=== PATIENT | male | born 1995 | race Caucasian/White ===

== ENCOUNTER → 2020-08-08 00:29 | Outpatient (CLI) | payer OTHER, SELFPAY ==
[2020-08-08 17:45] LABS: SARS-CoV-2 RNA PCR Negative
== END ==
PROVIDERS: PCP Family Medicine; Visit Provider Internal Medicine Gastroenterology
DX: Z01.812 Encounter for preprocedural laboratory examination (principal); Z20.822 Contact with and (suspected) exposure to COVID-19
CPT/HCPCS: C9803; U0003; U0005

== ENCOUNTER 2020-08-11 01:16 | Day surgery (SDC) | payer OTHER, SELFPAY ==
[2020-07-28 13:05] VITALS: BMI 22.8
[2020-08-11 12:59] VITALS: BP 121/79; PULSE 63; RESP 16; TEMP 37.1; O2SAT 99; BMI 23.8
[2020-08-11] MEDS: LACTATED RINGERS 1,000 ML 150 ML IV CONT (13:05)
--- NOTE | 2020-08-11 13:33 | WPDANESEPPF ---
Anes - Initial Pre Proc Eval Procedure: Operation Date: 08/11/20 13:45 Proposed Procedures p Esophagogastroduodenoscopy - Julian Quintana MD Date/Time: 08/11/20 13:33 Surgeon: Julian Quintana MD Pre Op Diagnosis: Paul's Esophagus Patient Data Age: 24 Gender: M Height: 5 ft 7 in Weight: 69 kg Last Vital Signs Temp 98.7 F 08/11/20 12:59 Pulse 63 08/11/20 12:59 Resp 16 08/11/20 12:59 BP 121/79 08/11/20 12:59 Pulse Ox 99 08/11/20 12:59 Allergies Allergy/AdvReac Type Severity Reaction Status Date / Time amoxicillin Allergy Unknown Skin Verified 08/11/20 12:58 Reaction cephalexin Allergy Unknown Unknown Verified 08/11/20 12:58 erythromycin base Allergy Unknown Nausea Verified 08/11/20 12:58 AMOXICILLIN TRIHYDRATE Allergy Mild Unknown Uncoded 07/28/20 12:59 POTASSIUM CLAVULANATE Allergy Mild Unknown Uncoded 07/28/20 12:59 Home Medications Medication Instructions Recorded Confirmed Type omeprazole 40 mg capsule,delayed 40 mg PO DAILY #30 cap 06/11/20 07/28/20 Rx release Patient hx anesthesia problems: none Family hx anesthesia problems: none PMFSH Past Medical History Medical History (Updated 06/11/20 @ 15:27 by Julian Quintana MD) Barretts esophagus GERD (gastroesophageal reflux disease) Hemorrhoids that prolapse with straining, but retract spontaneously Surgical History Surgical History H/O splenectomy Family History Family History Grandparent Family history of pancreatic cancer Family history of lung cancer Family history of primary malignant neoplasm of liver Family history of malignant neoplasm of brain Other No problems noted. 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 Questions were solicited and answers provided to the satisfaction of the patient/family/POA.
--- NOTE | 2020-08-11 14:06 | PM.HPGS ---
History of Present Illness History of Present Illness Consent: Risks, benefits, and alternatives have been discussed and questions answered. Patient agrees to proceed with procedure. Chief complaint: Angela's Esophagus Narrative: Vitaliy Guerrero is a 24 year old male with angela's, controlled with omeprazole Review of Systems Constitutional: Constitutional: Denies headache(s) and Denies weakness Eyes: Eyes: Denies blurry vision ENT: Reports Normal hearing present, Denies headache(s) and Denies neck pain Cardiovascular: Cardiovascular: Denies chest pain and Denies dyspnea Respiratory: Respiratory: Denies dyspnea Gastrointestinal: Gastrointestinal: Reports no additional gastrointestinal complaints Genitourinary: Genitourinary: Denies dysuria Musculoskeletal: Musculoskeletal: Denies neck pain Integumentary/Breasts: Skin/Breast: Denies dry skin Neurologic: Reports Normal hearing present, Denies headache(s) and Denies weakness Psychiatric: Psychiatric: Denies anxiety Endocrine: Endocrine: Denies change in body appearance Hematologic/Lymphatic: Hematologic/Lymphatic: Denies easy bleeding Allergic/Immunologic: Allergic/Immunologic: Denies urticaria PMFSH Past Medical History Medical History (Updated 08/11/20 @ 14:07 by Julian Quintana MD) Barretts esophagus GERD (gastroesophageal reflux disease) Hemorrhoids that prolapse with straining, but retract spontaneously Surgical History Surgical History H/O splenectomy Family History Family History Grandparent Family history of pancreatic cancer Family history of lung cancer Family history of primary malignant neoplasm of liver Family history of malignant neoplasm of brain Other No problems noted. 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 Gender identity (if verbalized by the patient): Male Spiritual care concerns: No Meds Home Medications and Allergies Home Medications Medication Instructions Recorded Confirmed Type omeprazole 40 mg capsule,delayed 40 mg PO DAILY #30 cap 06/11/20 07/28/20 Rx release Allergies Allergy/AdvReac Type Severity Reaction Status Date / Time amoxicillin Allergy Unknown Skin Verified 08/11/20 12:58 Reaction cephalexin Allergy Unknown Unknown Verified 08/11/20 12:58 erythromycin base Allergy Unknown Nausea Verified 08/11/20 12:58 AMOXICILLIN TRIHYDRATE Allergy Mild Unknown Uncoded 07/28/20 12:59 POTASSIUM CLAVULANATE Allergy Mild Unknown Uncoded 07/28/20 12:59 Vital Signs Vital Signs - 24 hr 08/11/20 12:59 Temperature 98.7 F Pulse Rate 63 Respiratory Rate 16 Blood Pressure 121/79 Pulse Oximetry 99 Exam Const: General: comfortable and no acute distress HENMT: General nose exam: Normal nares present Eyes: General: appearance normal, both eyes and all related structures Neck: Neck: no JVD Resp: Auscultation: clear to auscultation bilaterally Cardio: Rate: regular rate Rhythm: regular rhythm GI: Inspection: non-distended GI Palp: Yes Soft to palpation Skin: General skin exam: normal color Neuro: General: gait normal Speech: normal speech Extrem: General: normal to inspection Psych: Mental Status: mental status grossly normal Assessment and Plan Assessment and plan (1) Barretts esophagus: Code(s): K22.70 - Angela's esophagus without dysplasia Status: Acute Assessment and Plan: egd with bx (2) GERD (gastroesophageal reflux disease): Code(s): K21.9 - Gastro-esophageal reflux disease without esophagitis
[2020-08-11 14:25] VITALS: BP 109/71; PULSE 90; RESP 16; O2SAT 92
[2020-08-11 14:35] VITALS: BP 105/65; PULSE 86; RESP 16; O2SAT 96
[2020-08-11 14:45] VITALS: BP 106/63; PULSE 80; RESP 16; O2SAT 97
== END 2020-08-11 15:00 | disposition home or self-care (01) ==
PROVIDERS: PCP Family Medicine; Visit Provider Internal Medicine Gastroenterology
PROC: 0DJ08ZZ Inspection of Upper Intestinal Tract, Via Natural or Artificial Opening Endoscopic (ICD-10-PCS; CPT 43235; principal; 2020-08-11 13:45)
DX: K22.70 Barrett's esophagus without dysplasia (principal); K44.9 Diaphragmatic hernia without obstruction or gangrene; K29.50 Unspecified chronic gastritis without bleeding; K21.00 Gastro-esophageal reflux disease with esophagitis, without bleeding
CPT/HCPCS: 43239; 36415; 80053; 83690; 85025; 88305; 99199; C9803; J2704; J7120; U0003; U0005

== ENCOUNTER 2020-08-11 19:30 | Emergency (ER) | payer OTHER, SELFPAY ==
[2020-08-11 19:57] VITALS: BP 119/64; PULSE 112; RESP 16; TEMP 37.1; O2SAT 94
[2020-08-11 20:12] LABS: Basophils Absolute Auto 0.1 K/mm3 (0.0-0.1); Basophils Percent Auto 0.4 % (0.2-1.2); Eosinophils Percent Auto 0.1 % (0-4.4); Hematocrit 43.1 % (42.0-52.0); Hemoglobin 14.3 g/dL (14.0-18.0); Immature Granulocyte Absolute 0.09 K/mm3 (0.00-0.031); Immature Granulocyte Percent A 0.5 % (0-0.5); Lymphocytes Absolute Auto 1.27 K/mm3 (0.9-3.2); Lymphocytes Percent Auto 6.5 % (18.3-44.2); Mean Corpuscular HGB Conc 33.2 g/dl (32-36); Mean Corpuscular Hemoglobin 30.1 pg (26-34); Mean Corpuscular Volume 90.7 fl (80-100); Mean Platelet Volume 9.4 fl (7.4-10.4); Monocytes Absolute Auto 1.4 K/mm3 (0.1-0.6); Monocytes Percent Auto 7.2 % (2.6-8.5); Neutrophils Absolute Auto 16.7 K/mm3 (1.3-6.7); Neutrophils Percent Auto 85.3 % (45.5-73.1); Platelet Count Result 363 k/mm3 (150-375); Red Blood Count 4.75 M/mm3 (4.6-6.20); Red Cell Distribution Width 14.1 % (11.5-14.5); White Blood Count 19.6 K/mm3 (4.5-10.0)
[2020-08-11 20:26] LABS: Alanine Aminotransferase 27 U/L (4-50); Albumin Level 4.7 g/dL (3.5-5.1); Alkaline Phosphatase 80 U/L (38-126); Anion Gap 7 mmol/L (8-16); Aspartate Amino Transferase 33 U/L (17-59); Bilirubin,Total 1.1 mg/dL (0.2-1.3); Blood Urea Nitrogen 11 mg/dL (9-20); Calcium 9.1 mg/dL (8.4-10.2); Carbon Dioxide 29 mmol/L (22-30); Chloride 105 mmol/L (98-107); Estimated CRCL calculation 115 ml/min; Estimated Glomerular Filt Rate > 60; Glucose 104 mg/dL (75-110); Lipase 65 U/L (23-300); Sodium 141 mmol/L (137-145)
[2020-08-11 20:30] LABS: Potassium 3.7 mmol/L (3.4-5.0)
--- NOTE | 2020-08-11 21:17 | PC.NURSE ---
aptient going home-reports that he feels some better encouraged to come back if worse
== END 2020-08-11 21:17 | disposition left against medical advice (07) ==
LOC: ANHED 21:25
PROVIDERS: Emergency Provider Emergency Medicine; PCP Family Medicine
DX: R50.9 Fever, unspecified (principal)
CPT/HCPCS: 36415; 80053; 83690; 85025; 99199

== ENCOUNTER 2023-01-26 11:48 | Outpatient (CLI) | payer OTHER, SELFPAY ==
--- NOTE | ~2023-01-26 | US_ITS ---
EXAMINATION: US scrotum doppler DATE: 01/26/2023 12:18 INDICATION: Right testicular pain and palpable abnormality TECHNIQUE: Testicular sonogram utilizing grayscale and Doppler COMPARISON: None. FINDINGS: The right testis measures 4.4 x 2.6 x 3.2 cm. The left testis measures 4.2 x 2.2 x 2.9 cm. There is normal vascular flow to both testes. The right epididymis contains a 5 mm cyst or spermatoce le corresponding to the palpable area of concern.. The left epididymis is normal with normal vascular flow. There is no varicocele or hydrocele. IMPRESSION: 1. 5 mm cyst or spermatocele of the right epididymis corresponding to the palpable abnormality of con cern. Reviewed, dictated and finalized at location F. IMPRESSION: 1. 5 mm cyst or spermatocele of the right epididymis corresponding to the palpa ble abnormality of concern.
== END 2023-01-26 11:49 ==
LOC: MICIMG 11:49
PROVIDERS: PCP Family Medicine; Visit Provider Physician Assistant
DX: N50.811 Right testicular pain (principal)
CPT/HCPCS: 76870; 93976

== ENCOUNTER 2023-06-24 18:07 | Emergency (ER) | payer OTHER, SELFPAY ==
--- NOTE | 2023-06-24 18:10 | ED.URI ---
HPI - URI/Sore Throat General Chief Complaint: Upper Respiratory Infection Stated Complaint: Sinus Infection;Ear pain Time Seen by Provider: 06/24/23 18:10 Source: patient Mode of arrival: ambulatory Limitations: no limitations History of Present Illness HPI Narrative: Patient is a 27-year-old male who presents with sinus congestion, sinus pressure and ear pain for 2 weeks. Reports symptoms improved for 1 day and then returned and worsened. Patient has been taking Mucinex with no relief. Denies any fever, chills, nausea or diarrhea. Patient had 1 episode of emesis Tuesday night. Related Data Allergies Allergy/AdvReac Type Severity Reaction Status Date / Time magnesium Allergy Severe Other Verified 06/24/23 18:17 amoxicillin Allergy Intermediate Hives Verified 06/24/23 18:17 cephalexin Allergy Unknown Unknown Verified 04/18/23 09:03 erythromycin base Allergy Unknown Nausea Verified 04/18/23 09:03 AMOXICILLIN TRIHYDRATE Allergy Mild Unknown Uncoded 04/18/23 09:03 POTASSIUM CLAVULANATE Allergy Mild Unknown Uncoded 04/18/23 09:03 Review of Systems Review of Systems: All systems reviewed & are unremarkable except as noted in HPI and below Constitutional: Constitutional: Denies body ache(s), Denies chills, Denies fatigue, Denies fever(s), Denies headache(s), Denies malaise and Denies weakness Eyes: Eyes: Denies blurry vision, Denies itchy eyes and Denies loss of vision ENT: Reports otalgia, Denies headache(s), Reports nasal congestion, Denies sinus pain, Reports sinus pressure and Denies sore throat Cardiovascular: Cardiovascular: Denies chest pain, Denies irregular heart rhythm and Denies dyspnea Respiratory: Respiratory: Denies cough and Denies dyspnea Gastrointestinal: Gastrointestinal: Denies abdominal pain, Denies diarrhea, Denies nausea and Denies vomiting Musculoskeletal: Musculoskeletal: Denies back pain, Denies myalgias and Denies arthralgias Integumentary/Breasts: Skin/Breast: Denies pruritus and Denies rash Neurologic: Denies headache(s), Denies loss of vision and Denies weakness Psychiatric: Psychiatric: Reports no additional psychiatric complaints Endocrine: Endocrine: Denies fatigue Allergic/Immunologic: Allergic/Immunologic: Denies itchy eyes PMFSH Past Medical History Medical History Barretts esophagus GERD (gastroesophageal reflux disease) Hemorrhoids that prolapse with straining, but retract spontaneously Surgical History Surgical History H/O splenectomy Family History Family History Grandparent Family history of pancreatic cancer Family history of lung cancer Family history of primary malignant neoplasm of liver Family history of malignant neoplasm of brain Other No problems noted. 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 There is no relevant family history pertinent to the presenting complaint. Exam Const: General: cooperative, healthy appearin
[2023-06-24 18:29] VITALS: BP 118/85; PULSE 71; RESP 16; TEMP 36.6; O2SAT 97
== END 2023-06-24 18:39 | disposition home or self-care (01) ==
PROVIDERS: Emergency Provider Nurse Practitioner Family; PCP Family Medicine
DX: J01.40 Acute pansinusitis, unspecified (principal); F12.90 Cannabis use, unspecified, uncomplicated; K22.70 Barrett's esophagus without dysplasia; K21.9 Gastro-esophageal reflux disease without esophagitis
CPT/HCPCS: 99213; G0463

== ENCOUNTER 2024-03-22 10:42 | Outpatient (CLI) | payer OTHER, SELFPAY ==
--- NOTE | ~2024-03-22 | XR_ITS ---
Clinical Indication: Chest pain PA and lateral views of the chest: Comparison: None Findings: The lungs are clear, without evidence of focal consolidation or pleural effusion. Cardiome diastinal silhouette is within normal limits. Bones and soft tissues are unremarkable. Impression: Normal chest. Reviewed, dictated and finalized at location . 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
== END 2024-03-22 10:43 | disposition home or self-care (01) ==
LOC: GOSHIMG 10:43
PROVIDERS: PCP Family Medicine; Visit Provider Student in an Organized Health Care Education/Training Program
DX: R07.9 Chest pain, unspecified (principal); R50.9 Fever, unspecified; R06.02 Shortness of breath
CPT/HCPCS: 71046

== ENCOUNTER 2024-08-13 15:01 | Outpatient (CLI) | payer OTHER, SELFPAY ==
--- NOTE | ~2024-08-13 | XR_ITS ---
EXAMINATION: XR foot RT 2V, XR foot LT 2V DATE: 08/13/2024 15:45 INDICATION: Spondylosis, other specified arthritis TECHNIQUE: 1. Dorsoplantar and lateral views of the left foot were obtained. 2. Dorsoplantar and lateral views of the right foot were obtained. COMPARISON: None. FINDINGS: Alignment is normal at both feet. No fractures. Joint spaces are normal throughout with no erosions t o suggest inflammatory arthritis. Soft tissues are unremarkable. No ankle joint effusions. IMPRESSION: 1. Normal bilateral foot radiographs. Reviewed, dictated and finalized at location B. IMPRESSION: 1. Normal bilateral foot radiographs.
--- NOTE | ~2024-08-13 | XR_ITS ---
EXAMINATION: XR lumbar spine min 4V, XR sacroiliac joints min 3V DATE: 08/13/2024 15:45 INDICATION: Spondylosis, other specified arthritis TECHNIQUE: 1. Anteroposterior, lateral, and bilateral oblique views of the lumbar spine, and cone-down lateral v iew of the lumbosacral junction were obtained. 2. AP and left and right oblique views of the bilateral sacroiliac joints were obtained. COMPARISON: None. FINDINGS: Lumbar spine: 5 degrees lumbar levocurvature. Sagittal alignment is normal. Vertebral body and disc heights are nor mal. No pars interarticularis defects. Mild osteoarthritis at a few of the lower lumbar facet joints. Sacral iliac joints: Sacral arches are intact. No fractures. Minimal bilateral sacroiliac osteoarthritis. No erosions or s ubarticular sclerosis to suggest inflammatory sacroiliitis. Bilateral hip joint spaces are normal. IMPRESSION: 1. Mild osteoarthritis at the bilateral sacroiliac joints and lower lumbar facet joints. No erosions to suggest an inflammatory sacroiliitis. Reviewed, dictated and finalized at location B. IMPRESSION: 1. Mild osteoarthritis at the bilateral sacroiliac joints and lower lumbar face t joints. No erosions to suggest an inflammatory sacroiliitis.
--- NOTE | ~2024-08-13 | XR_ITS ---
EXAMINATION: XR hand LT 2V, XR hand RT 2V DATE: 08/13/2024 15:45 INDICATION: Spondylosis. Other specified arthritis. TECHNIQUE: 1. Posteroanterior and lateral views of the left hand were obtained. 2. Posteroanterior and lateral views of the right hand were obtained. COMPARISON: None. FINDINGS: Normal alignment at both hands. No fractures. Joint spaces are normal throughout. No erosions to sugg est an inflammatory arthritis. Soft tissues are unremarkable at both hands. IMPRESSION: 1. Normal bilateral hand radiographs. Reviewed, dictated and finalized at location B. IMPRESSION: 1. Normal bilateral hand radiographs.
== END 2024-08-13 15:02 | disposition home or self-care (01) ==
LOC: MICIMG 15:03
PROVIDERS: PCP Family Medicine; Visit Provider Internal Medicine
DX: M13.80 Other specified arthritis, unspecified site (principal); M47.9 Spondylosis, unspecified; R21 Rash and other nonspecific skin eruption; M53.3 Sacrococcygeal disorders, not elsewhere classified; M51.369 Other intervertebral disc degeneration, lumbar region without mention of lumbar back pain or lower extremity pain
CPT/HCPCS: 72110; 72202; 73120; 73620

== ENCOUNTER 2024-10-15 14:52 | Outpatient (CLI) | payer OTHER, SELFPAY ==
--- NOTE | ~2024-10-15 | MR_ITS ---
EXAMINATION: MR pelvis wo con DATE: 10/15/2024 15:45 INDICATION: Ankylosing spondylitis TECHNIQUE: Magnetic resonance imaging (MRI) of the sacrum and coccyx was performed without intravenou s contrast. Sequences included sagittal PD-weighted FS FSE, coronal oblique T2-weighted FS FSE, rosie nal oblique T1-weighted FSE, coronal oblique T2-weighted FSE, oblique axial T2-weighted FS FSE and ob lique axial T1-weighted FSE. COMPARISON: Radiograph dated 08/13/2024 FINDINGS: Normal bone marrow signal throughout with no fracture or pathologic marrow replacing process. Mild os teoarthritis at the lateral segment joints with mild nonuniform joint space narrowing. No increased s ignal along the joint lines to suggest joint effusion or synovitis. No associated erosions or subarti cular signal changes to suggest an inflammatory sacroiliitis. The visualized L4-L5 and L5-S1 discs ar e normal. Bladder, prostate, seminal vesicles and visualized portions of bowels and pelvis are unrema rkable. No free fluid in the pelvis. No pathologically enlarged pelvic or inguinal lymphadenopathy. IMPRESSION: 1. Mild bilateral sacroiliac osteoarthritis. No findings to suggest an inflammatory sacroiliitis. Reviewed, dictated and finalized at location A. IMPRESSION: 1. Mild bilateral sacroiliac osteoarthritis. No findings to suggest an inflamma tory sacroiliitis.
== END 2024-10-15 14:53 | disposition home or self-care (01) ==
PROVIDERS: PCP Family Medicine; Visit Provider Internal Medicine
DX: M45.9 Ankylosing spondylitis of unspecified sites in spine (principal); M53.3 Sacrococcygeal disorders, not elsewhere classified
CPT/HCPCS: 72195

== ENCOUNTER 2024-11-11 10:31 | Emergency (ER) | payer OTHER, SELFPAY ==
[2024-11-11 10:44] VITALS: BP 125/82; PULSE 76; RESP 16; TEMP 36.6; O2SAT 100
--- NOTE | 2024-11-11 11:06 | ED_ITS ---
HPI - Eye Problem General Chief complaint: Eye Problems Stated complaint: EYE REDNESS Time Seen by Provider: 11/11/24 10:50 Source: patient and RN notes reviewed Mode of arrival: ambulatory Limitations: no limitations History of Present Illness HPI Narrative: 29-year-old male presents [facility] complaining left eye redness since this morning. Patient reports also having purulent discharge this morning. Patient denies any eye pain but reports his eye feels irritated. Patient denies any vision changes, pain with eye movement, fevers, body aches, chills, upper respiratory symptoms, cough, or any other symptoms. Patient states he does wear contacts but did not wear them yesterday. Patient does not currently have contacts and. Related Data Allergies Allergy/AdvReac Type Severity Reaction Status Date / Time magnesium Allergy Severe Other Verified 11/11/24 11:10 amoxicillin Allergy Intermediate Hives Verified 11/11/24 11:10 cephalexin Allergy Unknown Unknown Verified 11/11/24 11:10 erythromycin base Allergy Unknown Nausea Verified 11/11/24 11:10 AMOXICILLIN TRIHYDRATE Allergy Mild Unknown Uncoded 11/11/24 11:10 POTASSIUM CLAVULANATE Allergy Mild Unknown Uncoded 11/11/24 11:10 Review of Systems Review of Systems: CONSTITUTIONAL: Denies fever, chills, or sweats. EYES: Denies visual changes, blurry vision. Positive for redness and discharge. ENT: Denies rhinorrhea, congestion, sore throat, or otalgia. CARDIOVASCULAR: Denies chest pain, palpitations, or edema. RESPIRATORY: Denies cough or dyspnea. GASTROINTESTINAL: Denies abdominal pain, nausea, vomiting, or diarrhea. GENITOURINARY: Denies dysuria or hematuria. SKIN: Denies rash or itching. MUSCULOSKELETAL: Denies back pain, joint pain, or myalgia. NEUROLOGIC: Denies headache, numbness, or weakness. PSYCHIATRIC: Denies anxiety or depression. All other systems reviewed are negative, except as documented in HPI. [facility] Past Medical History Medical History Hemorrhoids that prolapse with straining, but retract spontaneously Barretts esophagus GERD (gastroesophageal reflux disease) Surgical History Surgical History H/O splenectomy Family History Family History Grandparent Family history of pancreatic cancer Family history of lung cancer Family history of primary malignant neoplasm of liver Family history of malignant neoplasm of brain Other No problems noted. 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 There is no relevant family history pertinent to the patient complaint. Exam Narrative: GENERAL: This is a well-nourished, well-developed adult, in no apparent distress. They are non ill-appearing, nontoxic appearing. HEAD: normocephalic, atraumatic. EYES: Sclera clear/white. Right Conjunctiva normal. Left conjunctiva injected with exudate. Vision is grossly intact. Extraocular movements intact. No pain through extraocular movements. Pupils PERRLA. No corneal opacities. EARS: External ears normal, auditory canals clear and without drainage, TMs normal without perforation. Hearing grossly intact. NOSE: External nose normal with no obvious nasal discharge, nasal turbinates without redness, no rhinorrhea. THROAT: Mucous membranes moist, posterior pharynx clear, without erythema or swelling. Uvula midline. NECK: Neck supple, non-tender without lymphadenopathy, masses or thyromegaly. CARDIOVASCULAR: Regular rate and rhythm without murmurs, gallops, or rubs. RESPIRATORY: Clear to auscultation. Breath sounds equal bilaterally. No wheezes, rales, or rhonchi. GASTROINTESTINAL: Abdomen soft, non-tender, nondistended. Bowel sounds are active. No hepato-splenomegaly, or palpable masses. No guarding. SKIN: warm, Dry, intact with no suspicious lesions or rash, good texture and turgor. NEURO: awake, alert, and oriented to person, place and time. There were no obvious focal neurologic abnormalities. EXTREMITIES: No joint tenderness, effusion, or edema noted. Course Course Emergency Course: Portions of this record may have been created with voice recognition software Level of Care: Express Care Visit Vital Signs Vital signs: Vital Signs Temperature 97.9 F 11/11/24 10:44 Pulse Rate 76 11/11/24 10:44 Respiratory Rate 16 11/11/24 10:44 Blood Pressure 125/82 11/11/24 10:44 Pulse Oximetry 100 11/11/24 10:44 Temperature 97.9 F 11/11/24 10:44 Pulse Rate 76 11/11/24 10:44 Respiratory Rate 16 11/11/24 10:44 Blood Pressure 125/82 11/11/24 10:44 Pulse Oximetry 100 11/11/24 10:44 Reviewed MDM - Eye Problem MDM Narrative Medical decision making narrative: Symptoms consistent with bacterial conjunctivitis. No photophobia, no eye pain. No corneal opacities. Exudate present. Visual acuity normal. Will prescribe ciprofloxacin eyedrops to cover for Pseudomonas infection. Discussed physical exam findings. Advised supportive measures and signs/symptoms to go to the ER. Pt is appropriate for outpt treatment and f/u. Differential Diagnosis Differential diagnosis: Likely corneal abrasion, conjunctivitis and other (Pebbles titis) Critical Care Time Critical Care Time Critical Care Time: No Discharge Plan Discharge Clinical Impression: Conjunctivitis Qualifiers: Conjunctivitis type: acute Acute conjunctivitis type: bacterial Laterality: left Qualified Code(s): H10.32 - Unspecified acute conjunctivitis, left eye Patient Disposition: Home Condition: Stable Instructions: Conjunctivitis (ED) Additional Instructions: Your exam today shows Conjunctivitis, You have been given a prescription for eye drops. Use the eye drops as instructed. If you are not better in two (2) days, you need to follow up with an vegetable farm manager. Do not rub the eye or put anything else in the eye, this can cause abrasions (scratches) on the eye or lead to vision loss. Also it is important not to touch the tube or tip of drops to the eye, as this can cause further infection. Wash your hands very well before instilling the medication. Handwashing can help prevent the spread of disease. Do not wear contacts until your infection resolves. Follow up with PCP in 3-5 days Please go to ER if he develops any vision changes, severe eye pain, worsening symptoms, dizziness, vomiting, nausea, headaches, or any other concerns. Contact [facility] if you need an Front Attendant Patient Language: Occitan Prescriptions: New ciprofloxacin HCl 0.3 % drops 2 drp LEFT EYE QID 5 Days Qty: 5 0RF No Action prednisone 50 mg tablet 50 mg PO DAILY Qty: 7 0RF buspirone 10 mg tablet 10 mg PO BID PRN (Reason: anxiety) Qty: 60 1RF ondansetron 4 mg tablet,disintegrating 4 mg PO Q8H PRN (Reason: nausea and vomiting) Qty: 20 0RF fluoxetine [Prozac] 20 mg capsule 20 mg PO DAILY Qty: 90 1RF modafinil 200 mg tablet 200 mg PO QAM Qty: 90 2RF omeprazole 40 mg capsule,delayed release(DR/EC) See Rx Instructions .ROUTE .COMPLEX Qty: 90 0RF Dose Instruction: Take 1 capsule by mouth daily. Rx Instructions: Take 1 capsule by mouth daily. Follow-up/Referrals: Tobin Kothari MD [Primary Care Provider] - Time of Disposition: 11:04
== END 2024-11-11 11:10 | disposition home or self-care (01) ==
PROVIDERS: PCP Family Medicine
DX: H10.32 Unspecified acute conjunctivitis, left eye (principal); F12.90 Cannabis use, unspecified, uncomplicated; K21.9 Gastro-esophageal reflux disease without esophagitis; K22.70 Barrett's esophagus without dysplasia
CPT/HCPCS: 99213; G0463

== ENCOUNTER 2024-12-20 03:33 | Day surgery (SDC) | payer OTHER, SELFPAY ==
[2024-12-03 15:17] VITALS: BMI 24.8
--- OUTSIDE RECORDS SUMMARY | 2024-12-20 03:36 | XMS_ITS | Clinical Summary ---
Author Organization [facility] Address [address] [place] [address] Care Team Providers Care Settlement Clerk Name Role Phone Tobin Kothari MD Primary Care Provider [phone] Allergies Active Allergy Reactions Criticality Noted Date Comments Amoxicillin Rash Medium 09/24/2014 Medications omeprazole (PriLOSEC) 40 mg capsule Take 1 capsule (40 mg total) by mouth daily Active Active Problems No known active problems Surgical History Surgery Date Site/Laterality Comments SPLENECTOMY, TOTAL 05/16/2000 - 05/15/2001 N/A Medical History Medical History Date Comments Anxiety Gastric reflux GERD (gastroesophageal reflux disease) Allergic rhinitis Social History Tobacco Use Types Packs/Day Years Used Date Smoking Tobacco: Never Tobacco Cessation:Counseling Given: Not Answered Personal Safety Answer Date Recorded Have you ever been in or are you currently in a harmful physical or emotional relationship or is someone making you feel afraid or unsafe? Denies 04/13/2023 Sex and Gender Information Value Date Recorded Sex Assigned at Not on file Legal Sex Male 3:42 AM PROCESS MANAGER Gender Identity Not on file Sexual Orientation Not on file Obstetrics History Last Filed Vital Signs Vital Sign Reading Time Taken Comments Blood Pressure 143/90 04/13/2023 5:49 PM PROCESS MANAGER Pulse 67 04/13/2023 5:49 PM PROCESS MANAGER Temperature 36.5 C (97.7 F) 04/13/2023 5:49 PM PROCESS MANAGER Respiratory Rate 16 04/13/2023 5:49 PM PROCESS MANAGER Oxygen Saturation 99% 04/13/2023 5:49 PM PROCESS MANAGER Inhaled Oxygen Concentration - - Weight 66.2 kg (146 lb) 04/13/2023 5:49 PM PROCESS MANAGER Height 170.2 cm (5' 7) 04/13/2023 5:49 PM PROCESS MANAGER Body Mass Index 22.87 04/13/2023 5:49 PM PROCESS MANAGER Plan of Treatment Health Maintenance Due Date Last Done Comments Depression Screening 1994 Hepatitis C Screening 1994 Varicella Vaccines (1 of 2 - 13+ 2-dose series) 08/19/2007 Hepatitis B Screening 2012 Regular Well Visit/Exam 18-64 2012 HPV Vaccines (1 - 3-dose SCD M series) 2021 Covid-19 Vaccine (3 - 2023-2 5 season) 2024 2020, 07/27/2020 Influenza Vaccine (#1) 2025 02/05/2020 DTaP/Tdap/Td Vaccine (2 - Td or Tdap) 04/02/2030 04/02/2020 Pneumococcal vaccine <65 Aged Out No longer eligible based on patient's age to complete this topic Insurance CIGNA CIGNA Care Teams Settlement Clerk Relationship Specialty Start Date End Date Tobin Kothari MD PCP - General Family Medicine 08/11/22
--- OUTSIDE RECORDS SUMMARY | 2024-12-20 03:36 | XMS_ITS | Clinical Summary ---
Author Organization [facility] Address [address] [place] [address] Care Team Providers Care Type Proof Reproducer Name Role Phone Tobin Kothari MD Primary Care Provider [phone] Source Comments [facility],non-[facility] Affiliates and Associated Physician Practices is amultiple site organization consisting of ambulatory clinics and hospital sitesin [place], [place], [place] and [place]. This disclosure is being madepursuant to the Care Everywhere program and may not contain all information available regarding this patient. 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 Gender Identity Not on file Sexual Orientation Not on file Last Filed Vital Signs Vital Sign Reading Time Taken Comments Blood Pressure 122/64 09/25/2014 12:43 AM CDT Pulse 78 09/25/2014 12:43 AM CDT Temperature 36.7 C (98.1 F) 09/25/2014 12:43 AM CDT Respiratory Rate 14 09/25/2014 12:43 AM CDT Oxygen Saturation 98% 09/25/2014 12:43 AM CDT Inhaled Oxygen Concentration - - Weight 57.6 kg (127 lb) 09/24/2014 7:53 PM CDT Height 170.2 cm (5' 7.01) 09/24/2014 7:53 PM CD T Body Mass Index 19.89 09/24/2014 7:53 PM CDT Plan of Treatment Health Maintenance Due Date Last Done Comments HIV SCREENING 2009 HEPATITIS C SCREENING 08/13/2012 DTAP/TDAP/TD VACCINES (1 - Tdap) 2013 HEPATITIS B VACCINE (1 of 3 - 19+ 3-dose series) 2013 HPV VACCINE (1 - 3-dose SCDM series) 2021 COVID-19 VACCINE (1 - 2023-2 5 season) 2024 DEPRESSION SCREENING 05/16/2024 INFLUENZA VACCINE (#1) 2025 ZOSTER VACCINE (1 of 2) 2044 HIB VACCINE Aged Out No longer eligi ble based on patient's age to complete this topic MENINGOCOCCAL (Group B) VACC INE SHARED DECISION-MAKING Aged Out No longer eligibl e based on patient's age to complete this topic MENINGOCOCCAL GROUPS A/C/Y/W VACCINE Aged Out No longer eligible b ased on patient's age to complete this topic PNEUMOCOCCAL VACCINE Aged Out No long er eligible based on patient's age to complete this topic Insurance [facility] [employer] [facility] [employer] Care Teams Type Proof Reproducer Relationship Specialty Start Date End Date Tobin Kothari MD [address] [place] [phone] PCP - General Family Medicine 09/24/14
--- OUTSIDE RECORDS SUMMARY | 2024-12-20 03:36 | XMS_ITS | Clinical Summary ---
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 MANAGER Gender Identity Not on file Sexual Orientation Not on file Plan of Treatment Health Maintenance Due Date Last Done Comments Annual Physical 1997 Hepatitis C 2012 DTaP, Tdap and Td Vaccines ( 1 - Tdap) 2013 Hepatitis B Vaccines (1 of 3 - 19+ 3-dose series) 2013 HPV Vaccines (1 - 3-dose SCD M series) 2021 COVID-19 Vaccine ( - 2023-2 5 season) 2024 Meningococcal B Vaccine Aged Out No l onger eligible based on patient's age to complete this topic Meningococcal Vaccine Aged Out No atif shantelle eligible based on patient's age to complete this topic Pneumococcal Vaccine: Pediat rics (0 to 5 Years) and At-Risk Patients (6 to 49 Years) Aged Out No longer eligible b ased on patient's age to complete this topic RSV Immunizations Under 20 Months Aged Out No longer eligible based on patient's age to complete this topic
--- OUTSIDE RECORDS SUMMARY | 2024-12-20 03:36 | XMS_ITS | Clinical Summary ---
Author Organization [facility] Address [address] [place] [address] Phone Care Team Providers Care Chute Boss Name Role Phone Tobin Kothari MD Primary Care Provider [phone] Allergies Active Allergy Reactions Criticality Noted Date Comments Amoxicillin Hives High 05/09/2023 Medications No known medications Active Problems Problem Noted Date Diagnosed Date Lightheadedness 05/09/2023 Headache, unspecified 05/09/2023 Hyperglycemia 05/09/2023 Social History Tobacco Use Types Packs/Day Years Used Date Smoking Tobacco: Never Smokeless Tobacco: Never Tobacco Cessation:Counseling Given: No Alcohol Use Standard Drinks/Week Comments Yes 1 (1 standard drink = 0.6 oz pur e alcohol) social drinker Education Answer Date Recorded What is the highest level of school you have completed or the highest degree you have received? 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 Not on file Not on file Not on file Last Filed Vital Signs Vital Sign Reading Time Taken Comments Blood Pressure 118/77 05/10/2023 2:21 PM DURABILITY ENGINEER Pulse 88 05/10/2023 2:21 PM DURABILITY ENGINEER Temperature 36.6 C (97.8 F) 05/10/2023 2:21 PM DURABILITY ENGINEER Respiratory Rate 18 05/10/2023 2:21 PM DURABILITY ENGINEER Oxygen Saturation 96% 05/10/2023 2:21 PM DURABILITY ENGINEER Inhaled Oxygen Concentration - - Weight 65.8 kg (145 lb) 05/09/2023 4:31 PM DURABILITY ENGINEER Height 170.2 cm (5' 7) 05/09/2023 4:31 PM DURABILITY ENGINEER Body Mass Index 22.71 05/09/2023 4:31 PM DURABILITY ENGINEER Plan of Treatment Health Maintenance Due Date Last Done Comments HPV VACCINES (1 - Male 3-dose series) 2009 DTAP/TDAP/TD VACCINES (1 - Tdap) 2013 HEPATITIS B VACCINES (1 of 3 - 19+ 3-dose series) 09/2013 INFLUENZA VACCINE (#1) 2024 Insurance [facility] OPEN ACCESS HMO Advance Directives For more information, please contact: [phone] * Full Code (Latest Code Status on File) Date Activated Date Inactivated Comments 05/09/2023 4:31 PM 05/10/2023 5:38 PM Care Teams Chute Boss Relationship Specialty Start Date End Date Tobin Kothari MD [address] [place] [phone] PCP - General Family Practice 05/09/23
[2024-12-20 12:06] VITALS: BP 125/90; PULSE 84; RESP 18; TEMP 36.6; O2SAT 99
[2024-12-20] MEDS: LACTATED RINGERS 1,000 ML 150 ML IV CONT (12:14)
--- NOTE | 2024-12-20 12:54 | P.PNAN_ITS ---
Anes - Initial Pre Proc Eval Procedure: Operation Date: 12/20/24 13:00 Proposed Procedures p Colonoscopy - Rod Gaitan MD Date/Time: 12/20/24 12:54 Surgeon: Rod Gaitan MD Pre Op Diagnosis: Diverticulitis of large intestine without perforat Patient Data Age: 29 Gender: M Height: 1.7 m Weight: 72.3 kg Last Vital Signs Temp 36.6 C 12/20/24 12:06 Pulse 84 12/20/24 12:06 Resp 18 12/20/24 12:06 BP 125/90 12/20/24 12:06 Pulse Ox 99 12/20/24 12:06 O2 Del Method Room Air 12/20/24 12:06 Allergies Allergy/AdvReac Type Severity Reaction Status Date / Time magnesium Allergy Severe Other Verified 12/20/24 12:03 amoxicillin Allergy Intermediate Hives Verified 12/20/24 12:03 cephalexin Allergy Unknown Hives Verified 12/20/24 12:03 erythromycin base Allergy Unknown Nausea Verified 12/20/24 12:03 AMOXICILLIN TRIHYDRATE Allergy Mild Unknown Uncoded 12/20/24 12:03 Home Medications ?Medication ?Instructions ?Recorded ?Confirmed ?Type buspirone 10 mg tablet 10 mg PO BID PRN anxiety #60 tabs 01/27/24 12/12/24 Rx fluoxetine 20 mg capsule (Prozac) 20 mg PO DAILY #90 caps 08/17/24 12/20/24 Rx modafinil 200 mg tablet 200 mg PO QAM #90 tabs 09/06/24 12/20/24 Rx omeprazole 40 mg capsule,delayed See Rx Instructions .Route 12/06/24 12/20/24 Rx release .COMPLEX #90 caps ondansetron 4 mg disintegrating 4 mg PO Q8H PRN nausea and 12/10/24 12/20/24 Rx tablet vomiting #20 tabs Patient hx anesthesia problems: none Family hx anesthesia problems: none Results Review: All pre-operative results and documents have been reviewed as part of the pre- operative evaluation. [facility] Past Medical History Medical History Hemorrhoids that prolapse with straining, but retract spontaneously Barretts esophagus GERD (gastroesophageal reflux disease) Surgical History Surgical History H/O splenectomy Family History Family History Grandparent Family history of pancreatic cancer Family history of lung cancer Family history of primary malignant neoplasm of liver Family history of malignant neoplasm of brain Other No problems noted. Other Family history of cardiovascular disease Social History Social History Smoking status: Never smoker Alcohol intake: current Drinks per week: 3 Alcohol use details: socially Substance use: current Substance use type: marijuana Last use: socially Lack of Transportation: No Lack of Food: Never True Current Housing: I Have Housing Concerned About Future Housing: No Difficulty Paying Gas/Electric Bills: No Difficulty Paying for Meds: No Currently Unemployed: No Education: Bachelor's Degree Difficulty w/ Childcare or Family Care: No Living arrangements: with family Occupation/Education: occupation 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 Informed Consent: The patient's anesthetic plan and its attendant risks and benefits were discussed with the patient/family/POA. Questions were solicited and answers provided to the satisfaction of the patient/family/POA.
--- NOTE | 2024-12-20 13:05 | P.HP_ITS ---
H&P: HPI History of Present Illness Date/Time: 12/20/24 13:05 Chief Complaint: diarrhea -abdominal pain Narrative: The patient is being evaluated by a contaminated land consultant for fluctuating arthritic type pains, no definite diagnosis yet. In addition, the patient is complaining of fluctuating bowel habits, with a predominance of diarrhea, about 30-40% of the times. This is associated with abdominal pain, crampy type sometimes relieved by defecation. There is no rectal bleeding or intentional weight loss. He is referred for a colonoscopy. Review of Systems Review of Systems: All systems reviewed & are unremarkable except as noted in HPI and below PMFSH Past Medical History Medical History Hemorrhoids that prolapse with straining, but retract spontaneously Barretts esophagus GERD (gastroesophageal reflux disease) Surgical History Surgical History H/O splenectomy Family History Family History Grandparent Family history of pancreatic cancer Family history of lung cancer Family history of primary malignant neoplasm of liver Family history of malignant neoplasm of brain Other No problems noted. Other Family history of cardiovascular disease Social History Social History Smoking status: Never smoker Alcohol intake: current Drinks per week: 3 Alcohol use details: socially Substance use: current Substance use type: marijuana Last use: socially Lack of Transportation: No Lack of Food: Never True Current Housing: I Have Housing Concerned About Future Housing: No Difficulty Paying Gas/Electric Bills: No Difficulty Paying for Meds: No Currently Unemployed: No Education: Bachelor's Degree Difficulty w/ Childcare or Family Care: No Living arrangements: with family Occupation/Education: occupation 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 Gender identity (if verbalized by the patient): Male Spiritual care concerns: No Meds Home Medications and Allergies Home Medications ?Medication ?Instructions ?Recorded ?Confirmed ?Type buspirone 10 mg tablet 10 mg PO BID PRN anxiety #60 tabs 01/27/24 12/12/24 Rx fluoxetine 20 mg capsule (Prozac) 20 mg PO DAILY #90 caps 08/17/24 12/20/24 Rx modafinil 200 mg tablet 200 mg PO QAM #90 tabs 09/06/24 12/20/24 Rx omeprazole 40 mg capsule,delayed See Rx Instructions .Route 12/06/24 12/20/24 Rx release .COMPLEX #90 caps ondansetron 4 mg disintegrating 4 mg PO Q8H PRN nausea and 12/10/24 12/20/24 Rx tablet vomiting #20 tabs Allergies Allergy/AdvReac Type Severity Reaction Status Date / Time magnesium Allergy Severe Other Verified 12/20/24 12:03 amoxicillin Allergy Intermediate Hives Verified 12/20/24 12:03 cephalexin Allergy Unknown Hives Verified 12/20/24 12:03 erythromycin base Allergy Unknown Nausea Verified 12/20/24 12:03 AMOXICILLIN TRIHYDRATE Allergy Mild Unknown Uncoded 12/20/24 12:03 Vital Signs Vital Signs - 24 hr 12/20/24 12:06 Temperature 97.8 F Pulse Rate 84 Respiratory Rate 18 Blood Pressure 125/90 Pulse Oximetry 99 Oxygen Delivery Room Air Exam Const: General: cooperative and healthy appearing Resp: Effort & Inspection: normal respiratory effort and able to speak in complete sentences Auscultation: clear to auscultation bilaterally Cardio: Rate: regular rate Rhythm: regular rhythm GI: Inspection: normal to inspection GI Palp: No No hepatosplenomegaly present Auscultation: normal bowel sounds Rectal Exam: deferred Skin: General skin exam: normal color Psych: Appearance: grossly normal Mental Status: mental status grossly normal Assessment and Plan Assessment and plan (1) Diarrhea: Code(s): R19.7 - Diarrhea, unspecified Status: Acute Assessment and Plan: The patient is deemed a good candidate for the procedure. Consent signed. Will proceed.
--- NOTE | 2024-12-20 13:20 | S_PTH ---
PATIENT: Vitaliy Guerrero LOC: SAL #:[id number] AGE/SX: 29/M ROOM: RE12/20/[address]: Rod Gaitan MD : 1995 BED: DIS: 12/20/2024 SPEC #: [id number] RECD: 12/20/24 14:21 STATUS: NIC REQ #: [id number] EUGENIA: 12/20/24 13:[address]: Rod Gaitan DEPT: [facility] Surgical RECD BY: Steph Calix ENTERED: 12/20/24 14:21 SP TYPE: Surgical OTHR DR: Tobin Kothari MD Tissues: A - Small Bowel Bx B - Colon Biopsy C - Colon Biopsy Procedures: Hematoxylin and Eosin Stain Gross and Microscopic Level 4
[2024-12-20 13:25] VITALS: BP 101/59; PULSE 69; RESP 19; O2SAT 99
[2024-12-20 13:35] VITALS: BP 102/66; PULSE 61; RESP 20; O2SAT 99
[2024-12-20 13:45] VITALS: BP 114/75; PULSE 64; RESP 18; O2SAT 99
== END 2024-12-20 13:52 | disposition home or self-care (01) ==
PROVIDERS: PCP Family Medicine; Referring Provider Internal Medicine; Visit Provider Internal Medicine Gastroenterology
PROC: 0DJD8ZZ Inspection of Lower Intestinal Tract, Via Natural or Artificial Opening Endoscopic (ICD-10-PCS; CPT 45378; principal; 2024-12-20 13:00)
DX: R19.7 Diarrhea, unspecified (principal); F12.90 Cannabis use, unspecified, uncomplicated
CPT/HCPCS: 45380; 88305; J2003; J2704; J7120